=== PATIENT | female | born 1995 | race Caucasian/White ===

== ENCOUNTER 2025-02-16 16:24 | Emergency (ER) | payer OTHER, SELFPAY ==
[2025-02-16 16:29] VITALS: BP 130/87
[2025-02-16 17:04] LABS: Hematocrit 37.6 % (37.0-47.0); Hemoglobin 12.8 g/dL (12.0-16.0); Mean Corp Hgb Conc. 34.0 g/dL (33.0-37.0); Mean Corpuscular Volume 87.2 fL (81.0-99.0); Nucleated Red Blood Cells % 0 %; Platelet Count 161 10^3/uL (130-400); Red Cell Dist. Width 11.9 % (11.5-14.5)
[2025-02-16 17:19] LABS: ALT (SGPT) 19 U/L (0-35); AST (SGOT) 20 U/L (14-36); Albumin 5.0 g/dl (3.5-5.0); Alkaline Phosphatase 50 U/L (38-126); Blood Urea Nitrogen 13 mg/dl (7-17); Calcium 9.7 mg/dl (8.4-10.2); Carbon Dioxide 22 mmol/L (22-30); Chloride 107 mmol/L (98-107); Glucose 96 mg/dl (70-99); Potassium 4.1 mmol/L (3.5-5.1); Sodium 139 mmol/L (135-145); Total Protein 8.0 g/dl (6.3-8.2); eGFR > 60.00
[2025-02-16 18:23] LABS: Beta HCG Quantitative 376.39 mIU/ml
--- NOTE | 2025-02-16 20:48 | ED.GENMED ---
History of Present Illness
General
Chief Complaint: Vaginal Bleeding
Source: patient
Exam Limitations: none
Time Seen by Provider: 02/16/25 20:26
Nursing documentation reviewed up to this point in time: agreed with
History of Present Illness
History of Present Illness:
The patient is a 29 y.o female at approximately 6 weeks gestation who presents to the emergency department with vaginal bleeding. Patient reports initially noticing mild vaginal bleeding last night which has persisted and worsened today. She
describes bright red blood as well as passing a few small clots. Patient contacted her [employer] today who referred her to the emergency department for further evaluation.
She denies any chest pain, shortness of breath, lightheadedness/dizziness. She has not had any syncopal episodes. No fevers or chills. She does report very mild lower abdominal cramping.
Patient states that her LMP was January 03. Her initial at-home test was positive on January 26. She follows with [facility] and is scheduled to see them in office later this week.
Review of Systems
Review of Systems
Allergies reviewed?: Yes
All Other Systems: ROS reviewed and negative except as documented in HPI and ROS
Phy Exam
Physical Exam
Physical Exam:
Vitals: Tachycardic on arrival, improved by my assessment. Otherwise stable vital signs.
General: Patient is well appearing, no acute distress
Skin: Warm and dry, no rashes or lesions
Head: Normocephalic, atraumatic
Eyes: Sclera nonicteric.
Throat: Protecting airway
Neck: Normal ROM, no cervical spine tenderness, no meningismus
Cardiac: Regular rate and rhythm, no murmurs.
Pulm: Normal respiratory effort, no wheezes, rales, rhonchi heard on exam
Abdomen: Abdomen soft. No focal abdominal tenderness. No rebound tenderness or guarding. No palpable masses.
Pelvic: External genitalia normal appearing without lesions, ulcerations, or adenopathy. Bright red blood in vaginal vault. No visualized clots.
Extremities: No evidence of cyanosis or edema
Neuro: AAOx3. Grossly intact.
Psychiatric: Normal affect.
Course
Orders/Labs/Results
Orders:
Orders
02/16/25 16:33
Pelvis & Transvaginal US [US Pelvis W Transvag Combined] Urgent
Comment:
Reason For Exam: vaginal bleeding w/
02/16/25 16:45
Beta HCG Quantitative Urgent
Is this a screen?: No
Comment: pt is 6 weeks , bleeding
Complete Blood Count/With Diff Urgent
Comprehensive Metabolic Panel Urgent
02/16/25 21:06
Type And Crossmatch [Type+Screen] Urgent
Abnormal Lab Results
02/16/25
16:45
MPV 11.0 H fL
(7.4-10.4)
Creatinine 0.5 L mg/dL
(0.6-1.0)
02/16/25 16:45
02/16/25 16:45
Vital Signs
Initial and Last Documented VS:
Initial Vital Signs
Temp Pulse Resp BP Pulse Ox
98.3 F 113 20 130/87 97
02/16/25 16:29 02/16/25 16:29 02/16/25 16:29 02/16/25 16:29 02/16/25 16:29
Last Documented Vital Signs
Temp Pulse Resp BP Pulse Ox
99.0 F 88 20 118/86 99
02/16/25 20:56 02/16/25 20:56 02/16/25 16:29 02/16/25 20:56 02/16/25 20:56
MDM/Problems Addressed
Differential Diagnosis Includes:
Not limited to: Threatened , missed , early , ectopic , subchronic hematoma, etc.
MDM/Problems Addressed:
29-year-old female approximately six weeks gestation presenting with vaginal bleeding and mild lower abdominal cramping since yesterday. No fevers, syncopal episodes, shortness of breath, or lightheadedness. Vitals and exam as above. She is
hemodynamically stable on arrival. Patient in no apparent distress. Abdomen soft without any focal areas of tenderness. Patient perfusing well with normal cardio/pulmonary exam. Pelvic exam does reveal bright red blood in vaginal vault however no
visualizes clots. Labs and pelvic ultrasound performed prior to my evaluation. Labs without clinically significant abnormalities, hemoglobin is normal at 12.8. Beta hCG very low at 376. Ultrasound unfortunately shows no evidence of intrauterine
.
At this point � diagnosis would be a of unknown location. Suspect likely threatened miscarriage, however, unable completely exclude etopic .
Patient is blood type O positive - Rhogam not indicated
She remains hemodynamically stable in emergency department. Feel stable for discharge home with very close outpatient [employer] follow up for serial hCG levels and ultrasounds. Discussed with [employer], who agrees and is aware of plan. She will have HCG
repeated on Wed - given rx. Patient and patient�s comfortable with plan.
Chronic conditions affecting care:
N/A
Acute Exacerbation and/or Progression of Chronic Illness:
N/A
*Radiology
Radiology exam reviewed: radiology read reviewed
*Pulse Oximetry
SaO2: 97
Oxygen Mode of Delivery: Room air
Patient hypoxic: no
*EKG
Interpreted by ED Provider?: NA
*Game Producer Interpretation
Rate: Game Producer- N/A
*Critical Care Note
Total Time (30-74mins, 75-104mins- exclusive of procedures): Not Applicable
Patient Management
Discussion with other providers: Spool Tender (Case discussed with [employer])
ED Attending Note
-
Portions of this chart may have been created with voice recognition software.� Occasional wrong word or��sound alike� substitutions may have occurred due to the inherent limitations of voice recognition software.
Discharge Plan
Departure
Patient Disposition: Home (Routine Discharge)
Date of Disposition: 02/16/25
Time of Disposition: 22:38
Patient with high blood pressure during this ER visit?: Yes
Condition: Good
Discharge Problem:
Threatened miscarriage
Instructions: Threatened Miscarriage (DC), BLOOD PRESSURE
Prescriptions:
No Action
famotidine [Pepcid] 20 mg Tablet
20 mg PO DAILY
prenat.vits,sebastián,hkw-nlti-ecbxj Tablet
1 tab PO DAILY
escitalopram oxalate [Lexapro] 10 mg Tablet
10 mg PO DAILY
dexamethasone 20 mg Tablet
20 mg PO DAILY
ferrous sulfate [FeroSul] 325 mg (65 mg iron) Tablet
325 mg PO BID Qty: 30 0RF
acetaminophen 325 mg Tablet
650 mg PO Q4HPRN PRN (Reason: mild pain) Qty: 0 0RF
ibuprofen 600 mg Tablet
600 mg PO Q6HPRN PRN (Reason: moderate pain/cramps) Qty: 0 0RF
Referrals:
Mayank Tracy MD [Active, Gynecology] - Follow up in 2-3 days
Catalina Sykes CRNP [Family Provider, Family Practice]
Activity Restrictions/Additional Instructions:
RETURN TO THE EMERGENCY DEPARTMENT ANY PERSISTENT, HEAVY VAGINAL BLEEDING, LIGHTHEADEDNESS/DIZZINESS, EPISODES OF FAINTING, SHORTNESS OF BREATH, ABDOMINAL/PELVIC PAIN, WORSENING IN CURRENT SYMPTOMS, OR ANY OTHER CONCERNS
-As discussed�-your hCG value was 376.3 in the emergency department. There was no intrauterine identified on ultrasound. You will require very close follow-up with your [employer] outpatient.
-Please have your hCG level repeated this Sunday [facility]. Please contact your [employer] for results 2 hours following blood draw.
-Follow-up with [employer] for further evaluation/management to ensure that your levels normalize
Monitor your symptoms closely and return to the emergency department with any acute worsening/new symptoms or any other concerns
Interventions
Interventions:
*Risk Screen - Suicide Last Done: 02/16/25 16:32
*General Assessment Last Done: 02/16/25 16:32
*Neglect/Abuse Screening Last Done: 02/16/25 23:06
*ED- Fall Risk Assessment Last Done: 02/16/25 23:06
*ED COVID-19 Vaccine History Last Done: 02/16/25 16:32
*Nursing Disposition Last Done: 02/16/25 23:06
ED-Female Genitourinary Assessment Last Done: 02/16/25 21:58
Discharge Date and Time
Discharge Date/Time: 02/16/25 23:07
Print Language: DIVEHI
[2025-02-16 20:56] VITALS: BP 118/86
== END 2025-02-16 23:07 | disposition home or self-care (01) ==
LOC: EMR 16:24
PROVIDERS: EMERGENCY PHYSICIAN Emergency Medicine; FAMILY PHYSICIAN Nurse Practitioner Family
DX: O20.0 Threatened abortion (principal); Z3A.01 Less than 8 weeks gestation of pregnancy; R03.0 Elevated blood-pressure reading, without diagnosis of hypertension
CPT/HCPCS: 99284; 76830; 76856; 80053; 84702; 85025; 86850; 86900; 86901

== ENCOUNTER → 2025-02-18 08:39 | Outpatient (REF) | payer OTHER, SELFPAY ==
[2025-02-18 10:23] LABS: Beta HCG Quantitative 148.69 mIU/ml
== END ==
LOC: REG 08:39
PROVIDERS: ATTENDING PHYSICIAN Physician Assistant; FAMILY PHYSICIAN Internal Medicine; REFERRING PHYSICIAN Obstetrics & Gynecology
DX: O20.0 Threatened abortion (principal)
CPT/HCPCS: 36415; 84702